=== PATIENT | female | born 1975 | race Caucasian/White ===

== ENCOUNTER 2017-05-26 17:33 | Outpatient (CLI) | payer MEDICAID ==
[~2017-05-26] VITALS: Ht 160 cm; Wt 100.0 kg
[2017-05-26 17:47] VITALS: Ht 160 cm; Wt 100.0 kg
[2017-05-26 17:48] VITALS: BP 151/89
[2017-05-26] MEDS ORDERED: PREN1TAB17 PO (17:50)
--- NOTE | 2017-05-26 17:55 | NSTRPT ---
NST Information Datetime Report Generated by CPN: 05/26/2017 17:54 Datetime: 05/26/2017 09:14 NST Information EGA: 37.2 Test Number: 2 Time on Monitor: 05/26/2017 09:41 Time off Monitor: 05/26/2017 10:29 NST Duration (Min): 48 Reason for NST: Gestational Hypertension Test and Monitor Explained: Monitor Explained; Test Explained; Verbalized Understanding Pulse: 77 Resp: 17 SBP: 143 DBP: 87 Test Evaluation NST Interventions: PO Hydration; Food Given; Reposition Patient Patient States Movement: Present Contraction Frequency: X1, denies FHR Baseline : 130 Variability: Moderate 6-25bpm Accelerations: 15X15 Decelerations: None FHR Category: Category I NST Results: Reactive Comments: PT TO U/S, BRANDAN 13.3cm, cephalic Pt has not taken her blood pressure medication. 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 pt is asymptomatic. 1034-Pt home undelivered with LABOR precautions. Follow up NST appointment given. Kick Count instructions reviewed. Pt states understanding. No furht er questions asked at this time. (Annotations: Data stored by [facility] on behalf of user) Electronically Signed By E-Signature: with User ID: [id number] Datetime: 05/23/2017 10:31 NST Information EGA: 36.6 Datetime: 05/23/2017 10:20 NST Duration (Min): 26
[2017-05-26] MEDS ORDERED: METH250T PO (18:02)
[2017-05-26 18:41] LABS: BASOPHILS % 0.4 % (0.0-2.0); EOSINOPHILS # 0.1 10^3/ul (0.0-0.5); EOSINOPHILS % 1.2 % (0.0-7.0); HEMATOCRIT 37.8 % (37.0-47.0); HEMOGLOBIN 13.1 g/dl (12.0-16.0); LYMPHOCYTES # 2.1 10^3/ul (0.8-2.9); LYMPHOCYTES % 20.6 % (15.0-51.0); MEAN CORPUSCULAR HEMOGLOBIN 29.1 pg (29.0-33.0); MEAN CORPUSCULAR HGB CONC 34.7 g/dl (32.0-37.0); MEAN PLATELET VOLUME 10.5 fl (7.4-10.4); MONOCYTE # 0.8 10^3/ul (0.3-0.9); MONOCYTES % 7.3 % (0.0-11.0); NEUTROPHIL # 7.3 10^3/ul (1.6-7.5); PLATELET COUNT 188 10^3/UL (140-415); RED CELL DISTRIBUTION WIDTH 14.4 % (11.5-14.5); WHITE BLOOD COUNT 10.4 10^3/ul (4.8-10.8)
--- NOTE | 2017-05-26 18:49 | RADRPT ---
PROCEDURE: US OB biophysical profile. CLINICAL INDICATION: evaluation TECHNIQUE: Multiple sonographic images of the pelvis were obtained. The images were reviewed on a PACS workstation. COMPARISON: No prior studies are available for comparison. FINDINGS: There is a single viable intrauterine gestation. Cardiac activity is present with 154 beats per min tomás. There is a vertex presentation. The placenta is left lateral in location. There is no evidence of placental abruption. There is a normal amount of amniotic fluid with an BRANDAN = 10.1 cm. Biophysical profile: movement 2/2 tone 2/2. breathing 2/2 BRANDAN 2/2 Total 06/13 RPTAT: AA . IMPRESSION: Normal biophysical profile. Physician Neal Date Time Electronically viewed and signed by Physician Neal on 05/26/2017 18:49 RA/
--- NOTE | 2017-05-26 18:52 | PN ---
Triage Information Date/Time May 26 at 1850 Weeks of Gestation 37 weeks 2 /7 day : 7 Para: 4 Diabetes: none Additional information 37 weeks 2/7 days seen in the triage to rule out -induced hypertension Objective Vital Signs Date Time Temp Pulse Resp B/P Pulse Ox O2 Delivery O2 Flow Rate FiO2 05/26/17 17:48 98.1 151/89 Heart Rate: 130's Contractions: None Results/Medications Result Diagram: 05/26/17 1831 Results 24 hrs Laboratory Tests Test 05/26/17 18:31 White Blood Count 10.4 Red Blood Count 4.50 Hemoglobin 13.1 Hematocrit 37.8 Mean Corpuscular Volume 84.0 Mean Corpuscular Hemoglobin 29.1 Mean Corpuscular Hemoglobin Concent 34.7 Red Cell Distribution Width 14.4 Platelet Count 188 Mean Platelet Volume 10.5 H Neutrophils % 70.0 Lymphocytes % 20.6 Monocytes % 7.3 Eosinophils % 1.2 Basophils % 0.4 Nucleated Red Blood Cells % 0.0 Neutrophils # 7.3 Lymphocytes # 2.1 Monocytes # 0.8 Eosinophils # 0.1 Basophils # 0.0 Nucleated Red Blood Cells # 0.0 TL DOMINIQUE MD May 26, 2017 18:52
[2017-05-26 19:17] LABS: ALBUMIN 3.3 g/dl (3.3-4.9); CALCIUM 9.5 mg/dl (8.4-10.2); CREATININE 0.64 mg/dl (0.44-1.00); POTASSIUM 3.8 mmol/L (3.5-5.1); TOTAL PROTEIN 6.6 g/dl (6.1-8.1); URIC ACID 5.4 mg/dl (3.1-7.9)
[2017-05-26 19:27] LABS: BILIRUBIN,INDIRECT 0.1 mg/dl (0-1.1); BILIRUBIN,TOTAL 0.1 mg/dl (0.2-1.3)
[2017-05-26 21:21] LABS: ADD UMIC YES; UR ASCORBIC ACID 20 mg/dL (NEGATIVE); UR BACTERIA FEW /HPF (NONE SEEN); UR BILIRUBIN (Dip) NEGATIVE (NEGATIVE); UR BLOOD (Dip) NEGATIVE (NEGATIVE); UR CLARITY TURBID (CLEAR); UR COLOR AMBER (YELLOW); UR GLUCOSE (Dip) NEGATIVE (NEGATIVE); UR KETONES (Dip) TRACE mg/dL (NEGATIVE); UR LEUKOCYTE ESTERASE (Dip) 1+ Leu/ul (NEGATIVE); UR MUCUS FEW /HPF (NONE SEEN); UR NITRITE (Dip) NEGATIVE (NEGATIVE); UR RBC 0 /HPF (0-5); UR SPECIFIC GRAVITY (Dip) 1.031 (1.003-1.030); UR SQUAMOUS EPITHELIAL CELL MANY /HPF (FEW); UR TOTAL PROTEIN (Dip) 1+ mg/dl (NEGATIVE); UR UROBILINOGEN (Dip) NEGATIVE (NEGATIVE)
--- NOTE | 2017-05-26 22:25 | QN ---
Documentation Comment Follow-up note. Please see Dr Steven's note as he saw the patient. Labs reviewed. Blood pressure has normalized and the labs are all fine. Will send pt home with a 24 urine collection and she will return 05/28 to bring back the urine and recheck her blood pressure. ANTOINETTE FOREMAN MD May 26, 2017 22:25
== END 2017-05-27 | disposition home or self-care (01) ==
LOC: OBT 17:33 → L-D 17:33 → OBT 05-27
PROVIDERS: ATTEND Obstetrics & Gynecology
DX: O26.893 Other specified pregnancy related conditions, third trimester (principal); Z3A.37 37 weeks gestation of pregnancy; R03.0 Elevated blood-pressure reading, without diagnosis of hypertension
CPT/HCPCS: 76818; 80053; 81001; 84560; 85025; G0463

== ENCOUNTER 2017-05-28 08:59 | Outpatient (CLI) | payer MEDICAID ==
[~2017-05-28] VITALS: Ht 160 cm; Wt 100.6 kg
[~2017-05-28 08:59] MED LIST: METH250T PO; PREN1TAB17 PO
[2017-05-28 09:18] VITALS: BP 140/75; PULSE 86; RESP 18
--- NOTE | 2017-05-28 10:15 | RADRPT ---
PROCEDURE: US biophysical profile. CLINICAL INDICATION: induced hypertension. TECHNIQUE: Multiple sonographic images of the uterus were obtained. The images were revi ewed on a PACS workstation. COMPARISON: 05/26/2017. FINDINGS: There is a single live intrauterine gestation. heart rate is 141 beats per minute. The position is cephalic. The placenta is left lateral grade II with no abruption or previa. The BRANDAN is 10.8 cm. (Normal = 5-20 cm.) Breathing Movement: 2 Gross Body Movement: 2 Tone: 2 Qualitative Amniotic Fluid Volume: 2 TOTAL: 8 IMPRESSION: 1. The biophysical score is 8/8. RPTAT: QQ .Ham Callaway MD, MD Date Time Electronically viewed and signed by .Ham Callaway MD, on 05/28/2017 10:14 .R/
[2017-05-28 10:52] LABS: BASOPHILS % 0.4 % (0.0-2.0); EOSINOPHILS # 0.1 10^3/ul (0.0-0.5); EOSINOPHILS % 0.9 % (0.0-7.0); HEMATOCRIT 36.7 % (37.0-47.0); HEMOGLOBIN 12.4 g/dl (12.0-16.0); LYMPHOCYTES # 1.7 10^3/ul (0.8-2.9); LYMPHOCYTES % 18.1 % (15.0-51.0); MEAN CORPUSCULAR HEMOGLOBIN 28.2 pg (29.0-33.0); MEAN CORPUSCULAR HGB CONC 33.8 g/dl (32.0-37.0); MEAN CORPUSCULAR VOLUME 83.4 fl (82.0-101.0); MEAN PLATELET VOLUME 10.9 fl (7.4-10.4); MONOCYTE # 0.8 10^3/ul (0.3-0.9); MONOCYTES % 8.4 % (0.0-11.0); NEUTROPHIL # 6.5 10^3/ul (1.6-7.5); NEUTROPHILS % 71.3 % (39.0-77.0); PLATELET COUNT 176 10^3/UL (140-415); RED CELL DISTRIBUTION WIDTH 14.2 % (11.5-14.5); WHITE BLOOD COUNT 9.1 10^3/ul (4.8-10.8)
[2017-05-28 11:04] LABS: ALBUMIN 3.1 g/dl (3.3-4.9); ALBUMIN/GLOBULIN RATIO 0.96; BILIRUBIN,INDIRECT 0.3 mg/dl (0-1.1); BILIRUBIN,TOTAL 0.3 mg/dl (0.2-1.3); CALCIUM 8.9 mg/dl (8.4-10.2); CREATININE 0.66 mg/dl (0.44-1.00); POTASSIUM 3.7 mmol/L (3.5-5.1); TOTAL PROTEIN 6.3 g/dl (6.1-8.1); URIC ACID 6.1 mg/dl (3.1-7.9)
[2017-05-28 11:09] LABS: INR 0.9; PROTIME 12.1 Sec (12.2-14.2); PT RATIO 0.9
[2017-05-28 11:10] LABS: PARTIAL THROMBOPLASTIN TIME 26.9 Sec (25.0-35.0)
[2017-05-28 11:17] LABS: SCRET 0.64 mg/dl (0.44-1.00)
--- NOTE | 2017-05-28 11:56 | TRIAGE ---
OB Triage Datetime Report Generated by CPN: 05/28/2017 11:56 Datetime: 05/28/2017 09:57 Labor Evaluation Frequency: x1 Monitor Mode: External Duration (sec)2399: 80 Quality: Mild Pattern: Normal: <= 5 Contractions in 10 Minutes Resting Tone [place]: Relaxed Contraction Comments: PT REPORTS NOT FEELING CONTRACTIONS. Heart Rate FHR Baseline Rate: 130 Monitor Mode: External US FHR Baseline Changes: No Baseline Change Variability: Moderate 6-25 bpm Accelerations: 15X15 Decelerations: None Category: Category I Comments: NST REACTIVE Pain Assessment Pain Scale: 0 Pain Presence: None/Denies Pain Type: N/A Datetime: 05/28/2017 09:10 Time of Arrival: 05/28/2017 08:57 EGA: 37.4 Arrived By: Ambulatory Arrived From: Home Chief Complaint: RETURN 24 HOUR URINE COLLECTION Movement: Present Contractions: Denies/Absent Rupture of Membranes: Denies Vaginal Bleeding: None Vaginal Discharge: Denies Recent Sexual Intercouse: Denies Abdominal Trauma: Not Applicable Patient Complaints: None Time Provider Notified: 05/28/2017 09:25 Provider Notified: DR. DOMINIQUE Initial Plan: NST, URINE TOTAL PROTEIN, URINE CREATININE CLEARANCE, BPP, PIH LABS Datetime: 05/28/2017 09:05 Stage of : OB Triage Assessment Type: Triage Maternal Assessment Level of Consciousness: Fully Conscious Headache: Denies Blurred Vision: No Respiratory Effort: Unlabored; Regular Rhythm; Equal Expansion Breath Sounds, Left: Clear and Equal Breath Sounds, Right: Clear and Equal Nausea/Vomiting: Denies RUQ Epigastric Pain: Denies Lower Extremities Edema: Bilateral Lower Extremities Degree: 1+ Upper Extremities Edema: None Degree: None Facial Edema: None Temperature Route: Oral Fall Risk Assessment History of Falling: (0) No Secondary Diagnosis: (0) No Ambulatory Aid: (0) Bedrest/Nurse Assist IV Therapy: (0) No Gait: (0) Normal/Bedrest/Immobile Mental Status: (0) Oriented to Own Ability Fall Score: 0 Fall Risk Score Definition: No Risk: No action required Pain Assessment Pain Scale: 0 Pain Presence: None/Denies Pain Type: N/A Datetime: 05/26/2017 22:00 Stage of : OB Triage Labor Evaluation Frequency: X2 Monitor Mode: External Duration (sec)2399: 70-110 Quality: Mild Pattern: Normal: <= 5 Contractions in 10 Minutes Resting Tone [place]: Relaxed Heart Rate FHR Baseline Rate: 140 Monitor Mode: External US FHR Baseline Changes: No Baseline Change Variability: Moderate 6-25 bpm Accelerations: 15X15 Decelerations: None Category: Category I Datetime: 05/26/2017 21:51 Stage of : OB Triage Datetime: 05/26/2017 21:40 Assessment Type: Triage Datetime: 05/26/2017 21:21 Monitor Mode: External US Datetime: 05/26/2017 21:00 Stage of : OB Triage Labor Evaluation Frequency: None Monitor Mode: External Heart Rate FHR Baseline Rate: 135 Monitor Mode: External US FHR Baseline Changes: No Baseline Change Variability: Moderate 6-25 bpm Accelerations: 15X15 Decelerations: None Category: Category I Datetime: 05/26/2017 20:00 Stage of : OB Triage Labor Evaluation Frequency: None Monitor Mode: External Heart Rate FHR Baseline Rate: 145 Monitor Mode: External US FHR Baseline Changes: No Baseline Change Variability: Moderate 6-25 bpm Accelerations: 15X15 Decelerations: None Category: Category I Datetime: 05/26/2017 19:25 Stage of : OB Triage Datetime: 05/26/2017 19:24 Assessment Type: Triage Maternal Assessment Level of Consciousness: Fully Conscious DTR's/Clonus: DTRs 2+; No Clonus Headache: Denies Blurred Vision: No Respiratory Effort: Unlabored; Regular Rhythm; Equal Expansion Breath Sounds, Left: Clear and Equal Breath Sounds, Right: Clear and Equal Nausea/Vomiting: Denies RUQ Epigastric Pain: Denies Lower Extremities Edema: Bilateral Lower Extremities Degree: 1+ Upper Extremities Edema: None Degree: None Facial Edema: None Fall Risk Assessment History of Falling: (0) No Secondary Diagnosis: (0) No Ambulatory Aid: (0) Bedrest/Nurse Assist IV Therapy: (0) No Gait: (0) Normal/Bedrest/Immobile Mental Status: (0) Oriented to Own Ability Fall Score: 0 Fall Risk Score Definition: No Risk: No action required Datetime: 05/26/2017 17:55 Stage of : OB Triage Assessment Type: Triage Maternal Assessment Level of Consciousness: Fully Conscious DTR's/Clonus: DTRs 2+; No Clonus Headache: Denies Blurred Vision: Yes Respiratory Effort: Unlabored; Regular Rhythm; Equal Expansion Breath Sounds, Left: Clear and Equal Breath Sounds, Right: Clear and Equal Nausea/Vomiting: Present RUQ Epigastric Pain: Denies Lower Extremities Edema: Bilateral Lower Extremities Degree: Pitting Upper Extremities Edema: None Degree: None Facial Edema: None Temperature Route: Oral Fall Risk Assessment History of Falling: (0) No Secondary Diagnosis: (0) No Ambulatory Aid: (0) Bedrest/Nurse Assist IV Therapy: (0) No Gait: (0) Normal/Bedrest/Immobile Mental Status: (0) Oriented to Own Ability Fall Score: 0 Fall Risk Score Definition: No Risk: No action required Labor Evaluation Frequency: 0 Monitor Mode: External Resting Tone [place]: Relaxed Heart Rate FHR Baseline Rate: 155 Monitor Mode: External US Variability: Moderate 6-25 bpm Accelerations: 15X15 Decelerations: None Category: Category I Pain Assessment Pain Scale: 0 Pain Presence: None/Denies Pain Type: N/A Datetime: 05/26/2017 17:54 Time of Arrival: 05/26/2017 17:30 EGA: 37.2 Arrived By: Wheelchair Arrived From: Home Chief Complaint: c/o blurred vision /nausea Movement: Present Contractions: Denies/Absent Rupture of Membranes: Denies Vaginal Discharge: Denies Recent Sexual Intercouse: Denies Abdominal Trauma: Not Applicable Patient Complaints: Nausea; Other Time Provider Notified: 05/26/2017 18:06 Provider Notified: DR. DOMINIQUE Initial Plan: [id number], call MD
== END 2017-05-28 11:46 | disposition home or self-care (01) ==
LOC: OBT 08:59 → L-D 09:00 → OBT 11:46
PROVIDERS: ATTEND Obstetrics & Gynecology
DX: O13.3 Gestational [pregnancy-induced] hypertension without significant proteinuria, third trimester (principal); Z3A.38 38 weeks gestation of pregnancy
CPT/HCPCS: 36415; 76818; 80053; 82575; 84156; 84560; 85025; 85384; 85610; 85730; Z7500; G0463

== ENCOUNTER 2017-06-07 09:35 | Inpatient (IN) | payer MEDICAID ==
[~2017-06-07] VITALS: Ht 160 cm; Wt 99.6 kg
[2017-06-07 09:53] VITALS: Ht 160 cm; Wt 99.6 kg
[2017-06-07 09:56] VITALS: BP 147/97; PULSE 93; RESP 16
[2017-06-07] MEDS ORDERED: LACTATED RINGER'S 1,000 ML IV SCH (10:03)
[2017-06-07] MEDS ORDERED: CARBOPROST 250 MCG INJ IM PRN ×2 (10:30→14:30)
[2017-06-07] MEDS ORDERED: METHYLERGONOVINE 0.2 MG INJ IM PRN ×2 (10:30→14:30)
[2017-06-07] MEDS ORDERED: OXYTOCIN 30 UNITS/LR 500 ML IV SCH (10:30)
[2017-06-07] MEDS ORDERED: MISOPROSTOL 200 MCG TAB PR PRN ×2 (10:30→14:30)
[2017-06-07] MEDS ORDERED: OXYTOCIN 30 UNITS/LR 500 ML IV PRN ×2 (10:30→14:30)
[2017-06-07] MEDS ORDERED: CEFAZOLIN 2 GM/50 ML (PMX) 50 ML IVPB SCH (10:30)
[2017-06-07 11:21] LABS: BASOPHILS % 0.4 % (0.0-2.0); EOSINOPHILS # 0.1 10^3/ul (0.0-0.5); EOSINOPHILS % 0.8 % (0.0-7.0); HEMATOCRIT 39.7 % (37.0-47.0); HEMOGLOBIN 13.9 g/dl (12.0-16.0); LYMPHOCYTES # 1.8 10^3/ul (0.8-2.9); LYMPHOCYTES % 19.2 % (15.0-51.0); MEAN CORPUSCULAR HEMOGLOBIN 29.5 pg (29.0-33.0); MEAN CORPUSCULAR VOLUME 84.3 fl (82.0-101.0); MEAN PLATELET VOLUME 10.8 fl (7.4-10.4); MONOCYTE # 0.6 10^3/ul (0.3-0.9); MONOCYTES % 6.1 % (0.0-11.0); NEUTROPHIL # 6.8 10^3/ul (1.6-7.5); PLATELET COUNT 192 10^3/UL (140-415); RED BLOOD COUNT 4.71 10^6/ul (4.20-5.40); RED CELL DISTRIBUTION WIDTH 14.3 % (11.5-14.5); WHITE BLOOD COUNT 9.3 10^3/ul (4.8-10.8)
[2017-06-07 11:42] LABS: INR 0.86; PROTIME 11.7 Sec (12.2-14.2); PT RATIO 0.9
[2017-06-07 11:43] LABS: PARTIAL THROMBOPLASTIN TIME 28.1 Sec (25.0-35.0)
[2017-06-07] MEDS ORDERED: EPHEDrine SULFATE 50 MG/5 ML SYG ONE (12:53)
[2017-06-07] MEDS ORDERED: morphine SULFATE/PF (10 MG/10 ML) INJ ONE (12:53)
[2017-06-07] MEDS ORDERED: OXYTOCIN 30 UNITS/LR 500 ML IV ONE (12:53)
[2017-06-07] MEDS ORDERED: OXYTOCIN 10 UNIT INJ ONE (12:53)
[2017-06-07] MEDS ORDERED: METOCLOPRAMIDE 10 MG INJ ONE (12:53)
[2017-06-07] MEDS ORDERED: ONDANSETRON 4 MG INJ ONE (12:53)
[2017-06-07] MEDS ORDERED: EPHEDrine SULFATE 50 MG/5 ML SYG IV PRN (13:30)
[2017-06-07] MEDS ORDERED: morphine 4 MG/ML VIAL IV PRN ×2 (13:30)
[2017-06-07] MEDS ORDERED: NALOXONE (0.4 MG/ML) INJ IV PRN (13:30)
[2017-06-07] MEDS ORDERED: DIPHENHYDRAMINE 50 MG INJ IV PRN (13:30)
[2017-06-07] MEDS ORDERED: ONDANSETRON 4 MG INJ IV PRN (13:30)
[2017-06-07] MEDS ORDERED: morphine SULFATE/PF (10 MG/10 ML) INJ SPINAL ONE (13:30)
[2017-06-07] MEDS ORDERED: LANOLIN 7 GM TUBE TOP PRN (14:30)
[2017-06-07] MEDS: IBUPROFEN 600 MG TAB PO SCH ×2 (14:30→18:00)
[2017-06-07] MEDS ORDERED: ACETAMINOPHEN/CODEINE #3 TAB PO PRN (14:30)
--- NOTE | 2017-06-07 14:31 | OPR ---
Date/Time of Note Date/Time of Note DATE: 06/07/17 TIME: 14:23 Operative Report Free Text/Dictation 39 weeks history of 3 previous section requested tubal ligation at the time of Preoperative Diagnosis 39 weeks history of 3 previous section request for bilateral tubal ligation Postoperative Diagnosis Repeat bilateral tubal ligation extensive adhesiolysis Operation/Procedure Performed Repeat bilateral tubal ligation extensive adhesiolysis revision of abdominal scar Surgeon: TL DOMINIQUE MD assistant auditor: MARCELO LEWIS MD Anesthesia: spinal Estimated Blood Loss: other (650 mL) Complications: None TL DOMINIQUE MD Jun 07, 2017 14:31
[2017-06-07] MEDS: LACTATED RINGER'S 1,000 ML IV SCH (14:45)
[2017-06-07 15:25] LABS: BASOPHIL # 0.1 10^3/ul (0.0-0.1); BASOPHILS % 0.4 % (0.0-2.0); EOSINOPHILS % 0.2 % (0.0-7.0); HEMATOCRIT 38.6 % (37.0-47.0); HEMOGLOBIN 13.2 g/dl (12.0-16.0); LYMPHOCYTES # 1.4 10^3/ul (0.8-2.9); LYMPHOCYTES % 11.3 % (15.0-51.0); MEAN CORPUSCULAR HEMOGLOBIN 28.8 pg (29.0-33.0); MEAN CORPUSCULAR HGB CONC 34.2 g/dl (32.0-37.0); MEAN CORPUSCULAR VOLUME 84.3 fl (82.0-101.0); MEAN PLATELET VOLUME 10.9 fl (7.4-10.4); MONOCYTE # 0.5 10^3/ul (0.3-0.9); MONOCYTES % 4.3 % (0.0-11.0); NEUTROPHIL # 10.5 10^3/ul (1.6-7.5); NEUTROPHILS % 83.2 % (39.0-77.0); PLATELET COUNT 171 10^3/UL (140-415); RED BLOOD COUNT 4.58 10^6/ul (4.20-5.40); RED CELL DISTRIBUTION WIDTH 14.7 % (11.5-14.5); WHITE BLOOD COUNT 12.6 10^3/ul (4.8-10.8)
--- NOTE | 2017-06-07 16:47 | OPR ---
Operative Report Planned Procedure Free Text/Dictation 41 years old female 0 4 0 2 4 history of 3 previous request for bilateral tubal ligation at the time of section Procedure date Jun 07, 2017 Procedure(s) Repeat section bilateral tubal ligation extensive adhesio lysis revision of scar Performed by: TL DOMINIQUE MD Assisting provider: MARCELO LEWIS MD Anesthesiologist: DARRYL HELMS MD Pre-procedure diagnosis 39 weeks history of 3 previous section request for voluntary sterilization bilateral tubal ligation Anesthesia Type: spinal Procedure Description Under satisfactory [spine] anesthesia, the patient was prepped and draped and placed in a supine position, tilted to the left. Pfannenstiel incision was made , old scar was removed incision carried through the subcutaneous tissue. Bleeders brought under control with electrocautery. Fascia incised to the length of the incision. Rectus muscles from the fascia, divided midline. Peritoneum exposed, entered through a transverse incision. Exploration of abdomen revealed gravid uterus extensive adhesions between the round ligaments and anterior abdominal wall and omental adhesions taken down by sharp and blunt dissection. Bladder flap was developed. Transverse incision was made in the lower segment of the uterus. Amniotic sac ruptured. Clear amniotic fluid noted. Live baby girl was delivered from unengaged vertex Nasal oropharyngeal suction was performed. The baby was handed to the team for immediate attention patient received 20 units of Pitocin. placenta was delivered manually intact. Uterine cavity was cleaned with wet sponge and drainage established. Uterus closed in 2 layers using [Monocryl #1] in continuous fashion bilateral tubal ligation performed by identifying the fimbria and ampullar section of the right fallopian tube suture material used # 0 plain catgut which was reinforced with the same suture material that segment of the tube was excised submitted for the pathology same procedure performed for the opposite side. Peritoneal cavity irrigated with warm saline. Sponge, needle and instrument count reported to be correct. Abdominal peritoneum closed with [2-0 chromic catgut continuously. Rectus muscle approximated with [few interrupted 2-0 chromic catgut]. Fascia closed with [#1 PDS], subcutaneous tissue approximated with several interrupted 2-0 chromic catgut skin closed with mallory. Estimated blood loss [600]mL. Urine bag contained [200]mL of clear urine patient tolerated procedure well transferred to recovery room in good condition Post-Procedure Findings: Live Baby girl was delivered from unengaged vertex 9 and 9 Pt Condition post procedure: stable Physician Certification I, the undersigned physician, hereby certify that I have discussed the procedure described in this consent form with this patient (or the patient's legal district sales representative), including: * The risk and benefits of the procedure; * Any adverse reactions that may reasonably be expected to occur; * Any alternative efficacious methods of treatment which may be medically viable ; * The potential problems that may occur during recuperation; * Potential for blood transfusion and associated risks/benefits; and * Any research or economic interest I may have regarding this treatment. I further certify that the patient/legally responsible person was encouraged to ask question and that all questions were answered. TL DOMINIQUE MD Jun 07, 2017 16:44
--- NOTE | 2017-06-07 16:54 | HP ---
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 Rubella: immune RPR/VDRL: Negative GBS Status: Negative HBsAG: Negative OB Admission Exam Vital Signs Vital Signs Vital Signs Date Time Temp Pulse Resp B/P Pulse Ox O2 Delivery O2 Flow Rate FiO2 06/07/17 09:56 97.9 93 16 147/97 Room Air Physical Exam HEENT: WNL Heart: Rhythm Normal Lungs: Clear, Equal Abdomen: WNL Extremities: Normal Heart Rate: 130's Accelerations: Accelerations Present Decelerations: No Decelerations Contractions on Admission: None Last 72 hours Lab Results CBC & BMP 06/07/17 10:30 06/07/17 15:17 OB Assessment/Plan Reason for admission: other (Repeat bilateral tubal ligation) Plan: Other (Repeat bilateral tubal ligation) TL DOMINIQUE MD Jun 07, 2017 16:54
[2017-06-07 17:30] VITALS: BP 130/79; PULSE 92; RESP 20
[2017-06-07 18:02] VITALS: BP 131/77; PULSE 94; RESP 20
[2017-06-07] MEDS: OXYTOCIN 30 UNITS/LR 500 ML IV SCH ×2 (18:30→22:19)
[2017-06-07] MEDS: KETOROLAC 30 MG INJ IV PRN (18:31)
[2017-06-07 19:40] VITALS: BP 139/70; PULSE 99; RESP 18
[2017-06-07] MEDS: METHYLDOPA 250 MG TAB PO SCH (22:22)
[2017-06-07 23:30] VITALS: BP 135/61; PULSE 82; RESP 18
[2017-06-08] MEDS: LACTATED RINGER'S 1,000 ML IV SCH ×3 (02:25→14:30)
[2017-06-08 03:15] VITALS: BP 132/63; PULSE 85; RESP 18
[2017-06-08] MEDS: IBUPROFEN 600 MG TAB PO SCH ×4 (06:00→17:58)
[2017-06-08 08:57] VITALS: BP 114/63; PULSE 87; RESP 18
[2017-06-08] MEDS: METHYLDOPA 250 MG TAB PO SCH ×3 (09:00→21:00)
[2017-06-08 09:55] LABS: BASOPHILS % 0.3 % (0.0-2.0); EOSINOPHILS % 0.3 % (0.0-7.0); HEMATOCRIT 35.8 % (37.0-47.0); HEMOGLOBIN 12.3 g/dl (12.0-16.0); LYMPHOCYTES # 1.6 10^3/ul (0.8-2.9); LYMPHOCYTES % 13.5 % (15.0-51.0); MEAN CORPUSCULAR HEMOGLOBIN 29.5 pg (29.0-33.0); MEAN CORPUSCULAR HGB CONC 34.4 g/dl (32.0-37.0); MEAN CORPUSCULAR VOLUME 85.9 fl (82.0-101.0); MEAN PLATELET VOLUME 10.1 fl (7.4-10.4); MONOCYTE # 0.8 10^3/ul (0.3-0.9); MONOCYTES % 6.6 % (0.0-11.0); NEUTROPHIL # 9.1 10^3/ul (1.6-7.5); NEUTROPHILS % 78.9 % (39.0-77.0); PLATELET COUNT 162 10^3/UL (140-415); RED BLOOD COUNT 4.17 10^6/ul (4.20-5.40); RED CELL DISTRIBUTION WIDTH 14.8 % (11.5-14.5); WHITE BLOOD COUNT 11.5 10^3/ul (4.8-10.8)
--- NOTE | 2017-06-08 10:44 | PN ---
Date/Time of Note Date/Time of Note DATE: 06/08/17 TIME: 10:43 OB Subjective Subjective Subjective Post day 1 Afebrile Blood pressure 114/63 Abdomen soft Bowel sounds present Lochia normal Extremity normal Ambulation recommended Laboratory Tests Test 06/07/17 15:17 06/08/17 09:41 White Blood Count 12.610^3/ul 11.510^3/ul Red Blood Count 4.5810^6/ul 4.1710^6/ul Hemoglobin 13.2g/dl 12.3g/dl Hematocrit 38.6% 35.8% Mean Corpuscular Volume 84.3fl 85.9fl Mean Corpuscular Hemoglobin 28.8pg 29.5pg Mean Corpuscular Hemoglobin Concent 34.2g/dl 34.4g/dl Red Cell Distribution Width 14.7% 14.8% Platelet Count 52117^3/UL 49745^3/UL Mean Platelet Volume 10.9fl 10.1fl Neutrophils % 83.2% 78.9% Lymphocytes % 11.3% 13.5% Monocytes % 4.3% 6.6% Eosinophils % 0.2% 0.3% Basophils % 0.4% 0.3% Nucleated Red Blood Cells % 0.0/100WBC 0.0/100WBC Neutrophils # 10.510^3/ul 9.110^3/ul Lymphocytes # 1.410^3/ul 1.610^3/ul Monocytes # 0.510^3/ul 0.810^3/ul Eosinophils # 0.010^3/ul 0.010^3/ul Basophils # 0.110^3/ul 0.010^3/ul Nucleated Red Blood Cells # 0.010^3/ul 0.010^3/ul Current Medications Medications (Trade) Dose Ordered Sig/Anish Route PRN Reason Start Time Stop Time Status Last Admin Dose Admin Lactated Ringer's 1,000 ml @ 125 mls/hr Q8H IV 06/07/17 10:03 06/07/17 14:34 DC 06/07/17 10:24 Cefazolin Sodium/ Dextrose 50 ml @ 100 mls/hr ONCE IVPB 06/07/17 10:30 06/07/17 14:36 DC Oxytocin/Lactated Ringer's 500 ml @ 125 mls/hr ONCE IV 06/07/17 10:30 8/2/17 14:36 DC Oxytocin/Lactated Ringer's 500 ml @ 0 mls/hr ONCE PRN IV For Hemorrhage Management 06/07/17 10:30 06/07/17 14:36 DC Methylergonovine Maleate (Methergine) 0.2 mg ONCE PRN IM VAGINAL BLEEDING 06/07/17 10:30 06/07/17 14:36 DC Carboprost Tromethamine (Hemabate) 250 mcg ONCE PRN IM VAGINAL BLEEDING 06/07/17 10:30 06/07/17 14:36 DC Misoprostol (Cytotec) 1,000 mcg ONCE PRN TX VAGINAL BLEEDING 06/07/17 10:30 06/07/17 14:36 DC Ephedrine Sulfate 50 mg 50 mg STK-MED ONCE .ROUTE 06/07/17 12:53 06/07/17 12:54 DC Oxytocin/Lactated Ringer's 500 ml @ ud STK-MED ONCE IV 06/07/17 12:53 06/07/17 12:54 DC Morphine Sulfate (Duramorph) 10 mg STK-MED ONCE .ROUTE 06/07/17 12:53 06/07/17 12:54 DC Ondansetron HCl (Zofran Inj) 4 mg STK-MED ONCE .ROUTE 06/07/17 12:53 06/07/17 12:54 DC Metoclopramide HCl (Reglan) 10 mg STK-MED ONCE .ROUTE 06/07/17 12:53 06/07/17 12:54 DC Oxytocin (Oxytocin) 10 units STK-MED ONCE .ROUTE 06/07/17 12:53 06/07/17 12:54 DC Naloxone HCl (Narcan) 0.1 mg Q2M PRN IV FOR RESP RATE 8 OR LESS 06/07/17 13:30 06/08/17 13:29 Ketorolac Tromethamine (Toradol) 30 mg Q6H PRN IV PAIN 06/07/17 13:30 06/08/17 13:29 06/07/17 18:31 Morphine Sulfate (morphine) 2 mg Q3H PRN IV PAIN LEVEL 1-5 06/07/17 13:30 06/08/17 13:29 Morphine Sulfate (morphine) 4 mg Q3H PRN IV PAIN LEVEL 6-10 06/07/17 13:30 06/08/17 13:29 Diphenhydramine HCl (Benadryl) 25 mg Q6H PRN IV ITCHING 06/07/17 13:30 06/08/17 13:29 Ondansetron HCl (Zofran Inj) 4 mg Q6H PRN IV NAUSEA AND/OR VOMITING 06/07/17 13:30 06/08/17 13:29 Morphine Sulfate (Duramorph) 0.3 mg GIVEN ANESTH ONCE SPINAL 06/07/17 13:30 06/07/17 17:58 DC Ephedrine Sulfate 5 mg 5 mg [id number] PRN IV BLOOD PRESSURE SUPPORT 06/07/17 13:30 06/08/17 13:29 Lactated Ringer's 1,000 ml @ 125 mls/hr Q8H IV 06/07/17 14:30 06/08/17 10:21 Oxytocin/Lactated Ringer's 500 ml @ 125 mls/hr Q4H IV 06/07/17 14:30 06/07/17 22:29 DC 06/07/17 22:19 Acetaminophen/ Codeine Phosphate (Tylenol No.3) 1 tab Q4H PRN PO PAIN LEVEL 4-6 06/07/17 14:30 Ibuprofen (Motrin) 600 mg Q6 PO 06/07/17 14:30 Simethicone (Mylicon) 160 mg Q8H PRN PO DISTENSION/GAS/BLOATING 06/07/17 14:30 Lanolin (Syd-D-Esmuom) 1 applic BEDSIDE MEDICATION PRN TOP BEDSIDE FOR ANGELI TO NIPPLES 06/07/17 14:30 Diphtheria/ Tetanus/Acell Pertussis (Adacel) 0.5 ml ONCE ONCE IM* 06/10/17 09:00 06/10/17 09:01 Measles/Mumps/ Rubella Vaccine Live 0.5 ml 0.5 ml ONCE ONCE SC* 06/10/17 09:00 06/10/17 09:01 Oxytocin/Lactated Ringer's 500 ml @ 0 mls/hr ONCE PRN IV For Hemorrhage Management 06/07/17 14:30 Methylergonovine Maleate (Methergine) 0.2 mg ONCE PRN IM VAGINAL BLEEDING 06/07/17 14:30 06/07/17 14:36 DC Carboprost Tromethamine (Hemabate) 250 mcg ONCE PRN IM VAGINAL BLEEDING 06/07/17 14:30 Misoprostol (Cytotec) 1,000 mcg ONCE PRN [place] VAGINAL BLEEDING 06/07/17 14:30 Methyldopa (Aldomet) 250 mg TID PO 06/07/17 21:00 06/07/17 22:22 TL DOMINIQUE MD Jun 08, 2017 10:44
[2017-06-08] MEDS: KETOROLAC 30 MG INJ IV PRN (11:19)
[2017-06-08 12:30] VITALS: BP 120/59; PULSE 81; RESP 20
[2017-06-08 16:20] VITALS: BP 109/69; PULSE 89; RESP 20
[2017-06-08 20:15] VITALS: BP 111/60; PULSE 88; RESP 17
[2017-06-09] MEDS: IBUPROFEN 600 MG TAB PO SCH ×4 (00:32→17:19)
[2017-06-09 04:00] VITALS: BP 121/67; PULSE 77; RESP 18
[2017-06-09 08:30] VITALS: BP 142/89; PULSE 94; RESP 18
[2017-06-09] MEDS: METHYLDOPA 250 MG TAB PO SCH ×3 (08:38→21:00)
[2017-06-09 13:00] VITALS: BP 119/70; PULSE 82; RESP 18
--- NOTE | 2017-06-09 14:55 | PN ---
Date/Time of Note Date/Time of Note DATE: 06/09/17 TIME: 14:53 OB Subjective Subjective Subjective Post day 2 Afebrile vital signs are stable Abdomen soft Bowel sounds present Had normal bowel movement Extremities normal Ambulation encouraged TL DOMINIQUE MD Jun 09, 2017 14:55
[2017-06-09 16:30] VITALS: BP 130/67; RESP 18
[2017-06-09 20:00] VITALS: BP 129/80; PULSE 69; RESP 18
[2017-06-10] MEDS: IBUPROFEN 600 MG TAB PO SCH ×3 (00:16→12:15)
[2017-06-10 04:40] VITALS: BP 121/83; PULSE 85; RESP 18
[2017-06-10 07:45] VITALS: BP 136/85; PULSE 85; RESP 18
[2017-06-10] MEDS: METHYLDOPA 250 MG TAB PO SCH ×2 (08:10→12:28)
[2017-06-10] MEDS ORDERED: MEASLES,MUMPS,RUBELLA VACCINE INJ SC* ONE (09:00)
[2017-06-10] MEDS ORDERED: DIPHTH/TET/ACEL PERTUSS (ADULT) 0.5 ML VIAL IM* ONE (09:00)
[2017-06-10 12:30] VITALS: BP 130/78; PULSE 83; RESP 18
--- NOTE | 2017-06-10 13:50 | DS ---
Date/Time of Note Date/Time of Note DATE: 06/10/17 TIME: 13:46 Obstetrical Discharge Record Final Diagnosis Final Diagnosis: Term delivered Section Section: Repeat Condition on Discharge Physical Assessment Last Vitals: Post C section day 3 Doing Well Afebrile Ambulatory Chest Clear Breasts are soft , Nipples are intact Abdomen is soft Fundus is firm Moderate amount of lochia Incision is clean ,No evidence of infection No calf tenderness No ankle edema Current Medications Medications (Trade) Dose Ordered Sig/Anish Route PRN Reason Start Time Stop Time Status Last Admin Dose Admin Lactated Ringer's 1,000 ml @ 125 mls/hr Q8H IV 06/07/17 10:03 06/07/17 14:34 DC 06/07/17 10:24 Cefazolin Sodium/ Dextrose 50 ml @ 100 mls/hr ONCE IVPB 06/07/17 10:30 06/07/17 14:36 DC Oxytocin/Lactated Ringer's 500 ml @ 125 mls/hr ONCE IV 06/07/17 10:30 06/07/17 14:36 DC Oxytocin/Lactated Ringer's 500 ml @ 0 mls/hr ONCE PRN IV For Hemorrhage Management 06/07/17 10:30 06/07/17 14:36 DC Methylergonovine Maleate (Methergine) 0.2 mg ONCE PRN IM VAGINAL BLEEDING 06/07/17 10:30 06/07/17 14:36 DC Carboprost Tromethamine (Hemabate) 250 mcg ONCE PRN IM VAGINAL BLEEDING 06/07/17 10:30 06/07/17 14:36 DC Misoprostol (Cytotec) 1,000 mcg ONCE PRN DE VAGINAL BLEEDING 06/07/17 10:30 06/07/17 14:36 DC Ephedrine Sulfate 50 mg 50 mg STK-MED ONCE .ROUTE 06/07/17 12:53 06/07/17 12:54 DC Oxytocin/Lactated Ringer's 500 ml @ ud STK-MED ONCE IV 06/07/17 12:53 06/07/17 12:54 DC Morphine Sulfate (Duramorph) 10 mg STK-MED ONCE .ROUTE 06/07/17 12:53 06/07/17 12:54 DC Ondansetron HCl (Zofran Inj) 4 mg STK-MED ONCE .ROUTE 06/07/17 12:53 06/07/17 12:54 DC Metoclopramide HCl (Reglan) 10 mg STK-MED ONCE .ROUTE 06/07/17 12:53 06/07/17 12:54 DC Oxytocin (Oxytocin) 10 units STK-MED ONCE .ROUTE 06/07/17 12:53 06/07/17 12:54 DC Naloxone HCl (Narcan) 0.1 mg Q2M PRN IV FOR RESP RATE 8 OR LESS 06/07/17 13:30 06/08/17 13:29 DC Ketorolac Tromethamine (Toradol) 30 mg Q6H PRN IV PAIN 06/07/17 13:30 06/08/17 13:29 DC 06/08/17 11:19 Morphine Sulfate (morphine) 2 mg Q3H PRN IV PAIN LEVEL 1-5 06/07/17 13:30 06/08/17 13:29 DC Morphine Sulfate (morphine) 4 mg Q3H PRN IV PAIN LEVEL 6-10 06/07/17 13:30 06/08/17 13:29 DC Diphenhydramine HCl (Benadryl) 25 mg Q6H PRN IV ITCHING 06/07/17 13:30 06/08/17 13:29 DC Ondansetron HCl (Zofran Inj) 4 mg Q6H PRN IV NAUSEA AND/OR VOMITING 06/07/17 13:30 06/08/17 13:29 DC Morphine Sulfate (Duramorph) 0.3 mg GIVEN ANESTH ONCE SPINAL 06/07/17 13:30 06/07/17 17:58 DC Ephedrine Sulfate 5 mg 5 mg [id number] PRN IV BLOOD PRESSURE SUPPORT 06/07/17 13:30 06/08/17 13:29 DC Lactated Ringer's 1,000 ml @ 125 mls/hr Q8H IV 06/07/17 14:30 06/08/17 19:04 DC 06/08/17 10:21 Oxytocin/Lactated Ringer's 500 ml @ 125 mls/hr Q4H IV 06/07/17 14:30 06/07/17 22:29 DC 06/07/17 22:19 Acetaminophen/ Codeine Phosphate (Tylenol No.3) 1 tab Q4H PRN PO PAIN LEVEL 4-6 06/07/17 14:30 06/08/17 22:00 Ibuprofen (Motrin) 600 mg Q6 PO 06/07/17 14:30 06/10/17 12:15 Simethicone (Mylicon) 160 mg Q8H PRN PO DISTENSION/GAS/BLOATING 06/07/17 14:30 06/09/17 21:37 Lanolin ([id number]) 1 applic BEDSIDE MEDICATION PRN TOP BEDSIDE FOR ANGELI TO NIPPLES 06/07/17 14:30 Diphtheria/ Tetanus/Acell Pertussis (Adacel) 0.5 ml ONCE ONCE IM* 06/10/17 09:00 06/10/17 09:01 DC 06/10/17 12:19 Measles/Mumps/ Rubella Vaccine Live 0.5 ml 0.5 ml ONCE ONCE SC* 06/10/17 09:00 06/10/17 09:01 DC Oxytocin/Lactated Ringer's 500 ml @ 0 mls/hr ONCE PRN IV For Hemorrhage Management 06/07/17 14:30 Methylergonovine Maleate (Methergine) 0.2 mg ONCE PRN IM VAGINAL BLEEDING 06/07/17 14:30 06/07/17 14:36 DC Carboprost Tromethamine (Hemabate) 250 mcg ONCE PRN IM VAGINAL BLEEDING 06/07/17 14:30 Misoprostol (Cytotec) 1,000 mcg ONCE PRN DE VAGINAL BLEEDING 06/07/17 14:30 Methyldopa (Aldomet) 250 mg TID PO 06/07/17 21:00 06/10/17 12:28 New born is doing well, Breast feeding Voiding: Yes Bowel Movement: Yes Breast: Soft, non-tender Calf Tenderness: No Patient Condition: Good DEEDEE SZYMANSKI MD Jun 10, 2017 13:50
== END 2017-06-10 17:35 | disposition home or self-care (01) | DRG 766 ==
LOC: L-D 09:35 → PP1 17:01
PROVIDERS: ADMIT Obstetrics & Gynecology; ATTEND Obstetrics & Gynecology
PROC: 0UL70ZZ Occlusion of Bilateral Fallopian Tubes, Open Approach (ICD-10-PCS; 2017-06-07)
PROC: 10D00Z1 Extraction of Products of Conception, Low, Open Approach (ICD-10-PCS; principal; 2017-06-07 12:30)
DX: O34.211 Maternal care for low transverse scar from previous cesarean delivery (principal); E66.01 Morbid (severe) obesity due to excess calories; O99.214 Obesity complicating childbirth; K66.0 Peritoneal adhesions (postprocedural) (postinfection); Z68.38 Body mass index [BMI] 38.0-38.9, adult; Z30.2 Encounter for sterilization; O16.4 Unspecified maternal hypertension, complicating childbirth; Z3A.39 39 weeks gestation of pregnancy; Z37.0 Single live birth
CPT/HCPCS: 85025; 85610; 85730; 86592; 86850; 86900; 86901; 86920; 87340; 88302; 90715; 94760; 99464; J0690; J1885; J2274; J2405; J2590; J2765; J7120